=== PATIENT | male | born 1960 | race Caucasian/White ===

== ENCOUNTER 2019-04-10 09:42 | Outpatient (CLI) | payer MEDICARE ==
[~2019-04-10 09:42] MED LIST: Iopamidol 370 76% 100 ML VIAL ONE
--- NOTE | 2019-04-10 12:18 | CT ---
CT NECK SOFT TISSUES WITH CONTRAST: CLINICAL INDICATIONS: Right neck mass/nodule x8 months. COMPARISON: None. FINDINGS: Brain parenchyma: No abnormal enhancement in the visualized brain parenchyma. Sinuses: Adequate aeration of the visualized paranasal sinuses and mastoid air cells. Aerodigestive tract: The aerodigestive tract is patent. No mucosal abnormality. Effacement of the lef t piriform sinus may be due to benign apposition of mucosa. Nevertheless, direct visualization is recommended. The remainder of the supraglottic, glottic and subglottic larynx is unremarkable. Parotid gland: No intrinsic mass, or inflammation. Submandibular glands:No intrinsic mass, or inflammation. Soft tissue mass:None Lymph nodes: Multiple enlarged bilateral soft tissue neck lymph nodes. Enlarged right level I lymph n ode measuring 1.0 x 1.7 cm. Enlarged right level II lymph node measuring 0.7 x 1.3 cm. Enlarged left level I lymph node measuring 0.8 x 1.0 cm. There is also hyperplasia of the adenoid tonsils and palatine tonsils. Thyroid gland: The left thyroid lobe is asymmetrically enlarged with heterogeneous attenuation and co arse calcifications. The right thyroid lobe mass measures 4.3 x 3.0 cm. Upper mediastinum and lung apices: Chronic changes in the lung apices. There is an incompletely evalu ated enlarged right paratracheal lymph node measuring 1.5 x 0.9 cm. Additional smaller right paratracheal lymph nodes are suspected. There appears to be a necrotic anterior mediastinal lymph no de measuring 1.3 x 1.5 cm. There is also a right paratracheal lymph node just inferior to the right thyroid lobe measuring 1.2 x 0.9. Cervical spine: Vertebral body height is maintained. No fracture. Varying degrees of central canal st enosis and neural foraminal narrowing due to degenerative change. Great vessels of the neck: Grossly no abnormality. IMPRESSION: 1. Heterogeneously enlarged right thyroid lobe mass with coarse calcifications. Ultrasound is recomme nded for possible biopsy. 2. Enlarged soft tissue neck lymph nodes as described above. There is also evidence of lymphadenopath y in the mediastinum. There is an anterior mediastinal lymph node that is necrotic. There is also hyperplasia of the adenoid tonsils and palatine tonsils. 3. Effacement of the left piriform sinus which may represent benign apposition of mucosa. Direct visu alization is recommended. CODE T Transcribed Date/Time: 04/10/2019 12:24 PM
== END 2019-04-10 09:43 | disposition home or self-care (01) ==
LOC: SCSCT 09:42
PROVIDERS: ATTEND Otolaryngology Plastic Surgery within the Head & Neck
DX: R22.1 Localized swelling, mass and lump, neck (principal); E04.9 Nontoxic goiter, unspecified; R59.0 Localized enlarged lymph nodes; E07.89 Other specified disorders of thyroid
CPT/HCPCS: 70491; Q9967

== ENCOUNTER 2019-04-23 07:20 | Observation (INO) | payer MEDICARE ==
[2019-04-23] MEDS ORDERED: Lidocaine 1% w/Epinephrine 1:100K 20 ML VIAL ONE (08:37)
[2019-04-23] MEDS ORDERED: Fentanyl 250 MCG/5 ML VIAL ONE (08:38)
[2019-04-23] MEDS ORDERED: Rocuronium Bromide 10 MG/ML (10ML VIAL) ONE (10:36)
[2019-04-23] MEDS ORDERED: Ondansetron PF 4 MG/2 ML Vial ONE (10:36)
[2019-04-23] MEDS ORDERED: Lidocaine 1% PF 5 ML VIAL ONE (10:36)
[2019-04-23] MEDS ORDERED: PHENYLEPHRINE-NS 100 MCG/ML 10 ML SYRINGE ONE (10:36)
[2019-04-23] MEDS ORDERED: PROPOFOL 200 MG/20 ML VIAL ONE (10:36)
[2019-04-23] MEDS ORDERED: ePHEDrine/0.9% NaCl/PF SYRINGE 50 mg/10 ml ONE (10:36)
[2019-04-23] MEDS ORDERED: Fentanyl 100 MCG/2 ML VIAL ONE ×3 (11:32→13:06)
[2019-04-23] MEDS ORDERED: HYDROcodone/Acetaminophen 5/325 mg Tablet PO PRN (11:34)
[2019-04-23] MEDS ORDERED: Ondansetron PF 4 MG/2 ML Vial SLOW IVP PRN (11:35)
[2019-04-23] MEDS ORDERED: Morphine 2 MG/ML SYRINGE SLOW IVP PRN (11:35)
[2019-04-23] MEDS ORDERED: ceFAZolin 1 GM/D5W 1 GM in Premix Bag 1 BAG IVPB SCH (12:00)
[2019-04-23] MEDS: Sodium Chloride 0.45% 1,000 ML IV SCH ×2 (13:56→20:36)
[2019-04-23] MEDS ORDERED: Morphine 4 MG/ML VIAL ONE (14:13)
[2019-04-23] MEDS: ceFAZolin 1 GM/D5W 1 GM in Premix Bag 1 BAG IVPB SCH (17:45)
[2019-04-23] MEDS: Calcium Carbonate 500 MG TAB PO SCH ×2 (17:45→20:32)
[2019-04-23] MEDS: hydrOXYzine 25 MG TAB PO SCH ×2 (17:45→20:32)
[2019-04-23] MEDS: busPIRone HCl 10 MG TAB PO SCH (20:32)
[2019-04-23] MEDS: lamoTRIgine 100 MG TAB PO SCH (20:33)
[2019-04-23] MEDS: hydrALAZINE 25 MG TAB PO SCH (20:34)
[2019-04-23] MEDS: HYDROcodone/Acetaminophen 5/325 mg Tablet PO PRN (20:34)
[2019-04-23] MEDS ORDERED: traZODone HCl 150 MG TAB PO SCH (21:00)
[2019-04-23] MEDS ORDERED: Melatonin 3 MG TAB PO SCH (21:00)
[2019-04-24] MEDS: ceFAZolin 1 GM/D5W 1 GM in Premix Bag 1 BAG IVPB SCH ×2 (02:26→12:22)
[2019-04-24] MEDS: Sodium Chloride 0.45% 1,000 ML IV SCH ×2 (05:36→17:34)
--- NOTE | 2019-04-24 07:03 | EKG ---
Test Reason : PREOP Blood Pressure : / mmHG Vent. Rate : 068 BPM Atrial Rate : 068 BPM P-R Int : 170 ms QRS Dur : 092 ms QT Int : 442 ms P-R-T Axes : 036 -12 018 degrees QTc Int : 469 ms Normal sinus rhythm Minimal voltage criteria for LVH, may be normal variant Borderline ECG No previous ECGs available Confirmed by DR. Rolo LICEA ([id number]) on 04/24/2019 7:03:12 AM Referred By: TRACEY Confirmed By:DR. Rolo LICEA
[2019-04-24] MEDS: lamoTRIgine 100 MG TAB PO SCH (08:31)
[2019-04-24] MEDS: busPIRone HCl 10 MG TAB PO SCH (08:31)
[2019-04-24] MEDS: Calcium Carbonate 500 MG TAB PO SCH (08:34)
[2019-04-24] MEDS: hydrALAZINE 25 MG TAB PO SCH (08:34)
[2019-04-24] MEDS: hydrOXYzine 25 MG TAB PO SCH ×2 (08:35→12:23)
[2019-04-24] MEDS ORDERED: Calcitriol 0.25 MCG CAP PO SCH (09:00)
[2019-04-24] MEDS ORDERED: Lisinopril 20 MG TAB PO SCH (09:00)
[2019-04-24] MEDS ORDERED: Multivit, Therapeutic 1 TAB PO SCH (09:00)
[2019-04-24] MEDS ORDERED: Fish Oil 1,000 MG CAP PO SCH (09:00)
[2019-04-24] MEDS ORDERED: Meloxicam 15 MG TAB PO SCH (09:00)
[2019-04-24] MEDS ORDERED: FLU VACC QS2019-20(6MOS UP)/PF 60 MCG/0.5 ML SYRINGE IM ONE (09:00)
[2019-04-24] MEDS ORDERED: Hydrochlorothiazide 25 MG TAB PO SCH (09:00)
[2019-04-24] MEDS ORDERED: Amlodipine 10 MG TAB PO SCH (09:00)
--- NOTE | 2019-04-24 10:33 | OP ---
DATE OF PROCEDURE: 04/23/2019 PREOPERATIVE DIAGNOSIS: Right thyroid mass. POSTOPERATIVE DIAGNOSIS: Right papillary thyroid cancer. PROCEDURES PERFORMED: 1. Total thyroidectomy. 2. Intraoperative laryngeal nerve monitor. 3. Selective neck dissection (level 6). ESTIMATED BLOOD LOSS: 10 mL. COMPLICATIONS: None. ANESTHESIA: GETA. DESCRIPTION OF PROCEDURE: The patient was taken to the operating room and placed supine on the table. General endotracheal anesthesia was obtained by the Anesthesia Staff. Tube was secured in the midline of the upper lip and a shoulder roll was placed. The laryngeal electrodes were noted to be between the vocal cords by direct laryngoscopy. Following this, the patient was prepped and draped in standard surgical fashion. An incision was made overlying the thyroid gland through skin and subcutaneous tissue, into the platysmal layer with a 15 blade. Subplatysmal flaps were elevated superiorly to the level of the thyroid notch and inferiorly to the clavicles. Following this, the strap muscles were identified and were in the midline. There was a large firm mass located in the inferior right thyroid bed and had attachments to the adjacent strap muscles. This area was freed up and any attached strap muscle fibers were left en bloc on the right thyroid mass. Following this, the recurrent laryngeal nerve was identified as the mass was medially rotated as the nerve was dissected to the thyroid cartilage. The inferior thyroid artery was suture ligated. Also, the inferior parathyroid gland were identified and were preserved. Following this, the superior thyroid vascular pedicle was suture ligated immediately adjacent to the thyroid lobe. Following this, the gland was then further freed and mobilized medially and the Cerda ligaments were transected. This large right thyroid mass was then sent for frozen section analysis. There was also noted to be an enlarged lymph node inferior to the thyroid bed and dissection was performed removing a lymphovascular pedicle from the area of the right recurrent laryngeal nerve to the left recurrent laryngeal nerve and was sent for pathological analysis as positive metastatic papillary carcinoma found on frozen section. Therefore, the left thyroid lobe was harvested as well in a similar fashion. The gland was retracted medially and the superior vascular pedicle was suture ligated immediately adjacent to the thyroid gland. Following this, the gland was displaced medially further and the recurrent laryngeal nerve on this left side was identified and was protected as the gland was freed from this area. The superior thyroid artery was suture ligated on this side as well. Following this, the left thyroid gland completing the total thyroidectomy was removed from the body. The wound was irrigated. Hemostasis was controlled and a drain was placed. The wound was closed using Monocryl stitches for the strap muscle layer, platysma layer, and subcuticular layer and Dermabond was placed in the skin. The laryngeal nerve monitor remained on throughout the procedure and was now turned off. The patient tolerated the procedure well. Job ID: [id number]
[2019-04-24 11:04] VITALS: BMI 36.6
[2019-04-24 11:15] VITALS: BP 132/82; TEMP 98.7
[2019-04-24] MEDS: HYDROcodone/Acetaminophen 5/325 mg Tablet PO PRN (12:22)
--- NOTE | 2019-04-25 11:32 | DIS ---
DATE OF ADMISSION: 04/23/2019 DATE OF DISCHARGE: 04/24/2019 The patient is status post total thyroidectomy for papillary thyroid cancer and has had no postoperative issues. He has been out of bed, ambulating, and doing well. His calcium levels have remained elevated within the normal limits. His drain output has been reduced down to 15 mL in 12 hours. His plan will be to discharge on oral antibiotics and oral calcium supplements and follow up in 1 week for suture removal. Discharge diet is regular. Job ID: [id number]
== END 2019-04-24 14:36 | disposition home or self-care (01) ==
LOC: SDC 07:20 → SJJU 11:45
PROVIDERS: ADMIT Otolaryngology Plastic Surgery within the Head & Neck; ATTEND Otolaryngology Plastic Surgery within the Head & Neck
PROC: 0GTK0ZZ Resection of Thyroid Gland, Open Approach (ICD-10-PCS; principal; 2019-04-23)
PROC: 07B10ZZ Excision of Right Neck Lymphatic, Open Approach (ICD-10-PCS; 2019-04-23)
DX: C73 Malignant neoplasm of thyroid gland (principal); C77.0 Secondary and unspecified malignant neoplasm of lymph nodes of head, face and neck; F31.9 Bipolar disorder, unspecified; F41.9 Anxiety disorder, unspecified; N40.0 Benign prostatic hyperplasia without lower urinary tract symptoms; I10 Essential (primary) hypertension; M19.90 Unspecified osteoarthritis, unspecified site; Z79.1 Long term (current) use of non-steroidal anti-inflammatories (NSAID); Z79.82 Long term (current) use of aspirin; Z79.899 Other long term (current) drug therapy
CPT/HCPCS: 60252; 82310 ×3; 88307; 88331; 88334; 90686; 93005; 96361 ×2; 96365; 96366; 96375; 96376; G0008; G0378 ×2; 36415; 90471; 93010; J0131; J0690; J2001; J2270; J2405; J2704; J3010

== ENCOUNTER 2019-06-06 11:58 | Outpatient (CLI) | payer MEDICARE ==
--- NOTE | 2019-06-06 13:29 | NM ---
I-131 THYROID ABLATION: INDICATIONS: History of papillary thyroid carcinoma, recently treated with thyroidectomy in April. The patient now presents for ablation therapy. TECHNIQUE: The patient was given 142.4 millicuries I-131 orally. The patient has arranged for isolation for one week, according to protocol. Precautions were discusse d with the patient. The patient had no additional questions. The patient will follow up in 10 days for follow-up thyroid scan. POS: CLIVE
== END 2019-06-06 11:59 | disposition home or self-care (01) ==
LOC: NM 11:58
PROVIDERS: ATTEND Internal Medicine Endocrinology, Diabetes & Metabolism
DX: C73 Malignant neoplasm of thyroid gland (principal)
CPT/HCPCS: 79005; A9517 ×2

== ENCOUNTER 2019-06-16 12:23 | Outpatient (CLI) | payer MEDICARE ==
--- NOTE | 2019-06-16 15:22 | NM ---
WHOLE BODY RADIOIODINE SCAN POST ABLATION THERAPY: HISTORY: Papillary thyroid carcinoma status post thyroidectomy and radioiodine ablation therapy with 142.4 mCi I-131 on 06/06/2019. FINDINGS: There is intense uptake in the region of the thyroid bed. Physiologic uptake is noticed in the nasopharynx, liver, GI and tracts. No other abnormal areas o f tracer localization are seen. IMPRESSION: No evidence of distant metastatic disease. POS: OFF
== END 2019-06-16 12:24 | disposition home or self-care (01) ==
LOC: NM 12:23
PROVIDERS: ATTEND Internal Medicine Endocrinology, Diabetes & Metabolism
DX: C73 Malignant neoplasm of thyroid gland (principal)
CPT/HCPCS: 78018

== ENCOUNTER 2020-01-14 09:53 | Outpatient (CLI) | payer MEDICARE ==
--- NOTE | 2020-01-14 10:23 | ULT ---
THYROID ULTRASOUND INDICATION: History of thyroidectomy TECHNIQUE: Grayscale and color Doppler images were obtained of the thyroid gland. COMPARISON: CT of the soft tissues of the neck dated April 10, 2019 and a thyroid ultrasound dated March 03, 2019 FINDINGS: Right thyroid lobe: No residual right-sided thyroid tissue is evident. Thyroid isthmus: No residual thyroid isthmic tissue is evident. Left thyroid lobe: There is soft tissue within the left thyroid bed measuring approximately 1.1 x 0.9 x 0.9 cm. IMPRESSION: 1. Residual soft tissue seen within the left thyroid bed may reflect residual thyroid tissue. No mass was evident involving the left thyroid on prior thyroid ultrasound or CT the soft tissue of the neck. A new mass cannot be entirely excluded. Recommend consideration for CT soft tissue of the neck for further evaluation. Recommend correlation with the clinical exam.
== END 2020-01-14 09:54 | disposition home or self-care (01) ==
LOC: BICULT 09:53
PROVIDERS: ATTEND Internal Medicine Endocrinology, Diabetes & Metabolism
DX: C73 Malignant neoplasm of thyroid gland (principal); E03.9 Hypothyroidism, unspecified
CPT/HCPCS: 36415; 76536; 80053; 84439; 84443; 86800

== ENCOUNTER 2020-02-06 11:16 | Outpatient (CLI) | payer MEDICARE, OTHER ==
[2020-02-07 14:05] LABS: SARS-CoV-2 MS2 Positive; SARS-CoV-2 N Gene Negative; SARS-CoV-2 S Gene Negative; SARS-CoV-2 by NAA Not Detected (NotDetected); SARS-CoV-2 orf1ab Negative
== END 2020-02-06 11:17 | disposition home or self-care (01) ==
LOC: LABSCS 11:16
PROVIDERS: ATTEND Internal Medicine Endocrinology, Diabetes & Metabolism
DX: Z20.828 Contact with and (suspected) exposure to other viral communicable diseases (principal)
CPT/HCPCS: 87635; U0003

== ENCOUNTER 2020-02-11 12:05 | Day surgery (SDC) | payer MEDICARE ==
[2020-02-11] MEDS ORDERED: Sodium Bicarbonate 2.5 MEQ/5 ML VIAL ONE (12:54)
[2020-02-11] MEDS ORDERED: Lidocaine 1% PF 5 ML VIAL ONE (12:54)
--- NOTE | 2020-02-11 14:42 | ULT ---
ULTRASOUND GUIDED NECK BIOPSY: HISTORY: Previous thyroid ablation with radioactive iodine capsule. Abnormal necrotic lesion noted in the ante rior mediastinum, adjacent to the innominate artery. COMPARISON: None. CORRELATION: Soft tissue neck CT 01/23/2020 and thyroid ultrasound 01/14/2020. FINDINGS: Successful ultrasound-guided fine-needle aspiration of a soft tissue mass adjacent to the innominate artery. A total of two 25-gauge fine-needle aspirations were performed and two 22-gauge fine-needle aspirations were performed. Lesional tissue was placed directly in formalin. TECHNIQUE: Consent was obtained via an ultrasound-guided fine-needle aspiration of a left mediastinal mass adjac ent to the innominate artery. Left neck was prepped and draped in a sterile fashion. 1% lidocaine, buffered with sodium bicarbonate was used for local anesthesia. Under sonographic guidance, a 25-gaug e needle was advanced into the lesion. Two. 25-gauge samples were performed. Subsequently two 22-gauge samples were performed. Patient tolerated the procedure well. No immediate or postprocedure complications. IMPRESSION: Successful left neck biopsy. Final pathologic diagnosis is pending. Transcribed Date/Time: 02/11/2020 2:48 PM
[2020-02-11 14:51] VITALS: BP 139/78; TEMP 98.1
== END 2020-02-11 14:00 | disposition home or self-care (01) ==
LOC: ULT 12:05
PROVIDERS: ATTEND Internal Medicine Endocrinology, Diabetes & Metabolism
PROC: 0J953ZX Drainage of Left Neck Subcutaneous Tissue and Fascia, Percutaneous Approach, Diagnostic (ICD-10-PCS; principal; 2020-02-11)
DX: C73 Malignant neoplasm of thyroid gland (principal); E89.0 Postprocedural hypothyroidism; I10 Essential (primary) hypertension; R94.5 Abnormal results of liver function studies; Z79.82 Long term (current) use of aspirin; Z79.899 Other long term (current) drug therapy
CPT/HCPCS: 60100; 76942; 88173

== ENCOUNTER 2020-06-25 14:51 | Outpatient (CLI) | payer MEDICARE ==
--- NOTE | 2020-06-25 15:47 | ULT ---
Thyroid ultrasound: 06/25/2020 COMPARISON: 01/14/2020 HISTORY: Reevaluate thyroid gland following biopsy, history of thyroidectomy and prior radioactive io dine ablation TECHNIQUE: Multiplanar grayscale sonographic imaging of the thyroid bed obtained. FINDINGS: No normal thyroid tissue is appreciated. There is a subtle hyperechoic nodular area measuri ng 8 x 10 x 9 mm in the right aspect of the thyroid bed and a isoechoic 1.3 x 1.0 x 1.4 cm area of soft tissue echogenicity within the left aspect of the thyroid bed. These findings are nonspecific an d not optimally assessed on ultrasound. Mediastinal lymph node prominence seen on prior neck CT performed 01/23/2020 cannot be adequately asses sed on this exam. IMPRESSION: Soft tissue echogenicity within the thyroid bed bilaterally, etiology/significance uncert ain, not well characterized on ultrasound. Recommend neck CT with IV contrast to be compared to the 01/23/2020 exam.
== END 2020-06-25 14:52 | disposition home or self-care (01) ==
LOC: BICULT 14:51
PROVIDERS: ATTEND Internal Medicine Endocrinology, Diabetes & Metabolism
DX: C73 Malignant neoplasm of thyroid gland (principal); R93.89 Abnormal findings on diagnostic imaging of other specified body structures
CPT/HCPCS: 76536

== ENCOUNTER 2023-03-26 08:59 | Outpatient (CLI) | payer OTHER ==
[2023-03-26] MEDS ORDERED: Iopamidol 370 76% 100 ML VIAL ONE (14:13)
== END 2023-03-26 09:00 | disposition home or self-care (01) ==
LOC: BICCT 08:59
PROVIDERS: ATTEND Internal Medicine Endocrinology, Diabetes & Metabolism
DX: C73 Malignant neoplasm of thyroid gland (principal); R59.0 Localized enlarged lymph nodes
CPT/HCPCS: 70491; 71270; 82565

== ENCOUNTER 2024-07-17 08:56 | Outpatient (CLI) | payer OTHER ==
[2024-07-17] MEDS ORDERED: Iopamidol 370 76% 100 ML VIAL ONE (13:44)
== END 2024-07-17 08:57 | disposition home or self-care (01) ==
LOC: BICULT 08:56
PROVIDERS: ATTEND Internal Medicine Endocrinology, Diabetes & Metabolism
DX: C73 Malignant neoplasm of thyroid gland (principal); E04.2 Nontoxic multinodular goiter; E89.0 Postprocedural hypothyroidism
CPT/HCPCS: 70492; 76536; 82565; Q9967